=== PATIENT | male | born 1940 | race Caucasian/White ===

== ENCOUNTER 2017-09-23 09:53 | Observation (INO) | payer MEDICARE ==
[2017-09-23] MEDS ORDERED: Aspirin TAB* 325 MG PO ONE (10:29)
[2017-09-23] MEDS ORDERED: Nitroglycerin TAB 0.4 MG* 0.4 MG TAB SL ONE (10:40)
[2017-09-23 11:07] LABS: ABS Basophils 0 10^3/ul (0-0.2); ABS Eosinophils 0.1 10^3/ul (0-0.6); ABS Monocytes 0.6 10^3/ul (0-0.8); ABS Neutrophils 8.6 10^3/ul (1.5-7.7); ABS Nucleated RBC 0.01 10^3/ul; Eosinophil % 1.2 % (0-6); Hematocrit 48 % (42-52); Lymphocyte % 9.5 % (25-47); Mean Corpuscular HGB Conc 35 g/dl (31-36); Mean Corpuscular Hemoglobin 31 pg (27-31); Mean Corpuscular Volume 89 fL (80-94); Mean Platelet Volume 9 um3 (7.4-10.4); Nucleated Red Blood Cells % 0.1; Platelet Count 168 10^3/ul (150-450); Red Cell Distribution Width 14 % (10.5-15); White Blood Count 10.4 10^3/ul (3.5-10.8)
[2017-09-23 11:25] LABS: EGFR Non-African American 64.6 (>60)
--- NOTE | 2017-09-23 11:33 | RAD ---
INDICATION: Chest pain COMPARISON: Similar chest x-ray dated March 01, 2013 TECHNIQUE: Single AP portable view of the chest was obtained. FINDINGS: Image quality is compromised due to the relative inferiority of a portable chest x-ray. The heart and mediastinum exhibit normal size and contour. The lungs are grossly clear. There is no evidence of a large pleural effusion. Visualized bones are normal for the patient's age. IMPRESSION: No radiographic evidence for acute cardiopulmonary abnormality on this portable chest x-ray.
[2017-09-23] MEDS ORDERED: Iohexol 350* (CONTRAST) 500 ML MDV IV ONE (11:51)
--- NOTE | 2017-09-23 12:58 | RAD ---
STUDY: CT angiography of the chest, abdomen and pelvis. INDICATION: Chest pain radiating to the back. Relevant surgical history includes appendectomy for an ulcer" and lumbar surgery. COMPARISON: Similar examination dated January 20, 2013 TECHNIQUE: Multidetector CT angiography of the chest, abdomen and pelvis were obtained from the lung apices to the ischial tuberosities after the intravenous injection of 100 mL Omnipaque 350. Reformats were created in the coronal and sagittal planes. 3-D vascular imaging was created from the source images and reviewed as well. ANGIOGRAPHIC FINDINGS: The thoracic and abdominal aorta is normal in size and morphology. There is no evidence of pathologic aneurysmal dilatation or acute aortic dissection. There is mild scattered calcified atherosclerosis in the thoracic aorta becoming more confluent at the infrarenal abdominal aorta. The branch vessels of the arch of the aorta and abdominal aorta are adequately patent. There is eccentric noncalcified plaque along the medial margin of the left common iliac artery but adequate patency is maintained as far as the proximal femoral arteries. NON ANGIOGRAPHIC FINDINGS: Chest: The lungs are clear. There are no large pleural effusions. There is no mediastinal or hilar lymphadenopathy. The heart is grossly normal in appearance. Abdomen & Pelvis: Stable subcentimeter lesions with a fluid density are noted in the liver most consistent with benign cysts. Scattered calcifications are noted in the otherwise normal-appearing spleen. The pancreas and adrenal glands are grossly normal in appearance. At least one gallstone is incidentally noted. There are no definite inflammatory changes of the gallbladder within the limitations of a CT examination. The kidneys are normal in appearance without focal mass, calcification or signs of hydronephrosis. The renal cortices enhance promptly and symmetrically on arterial phase imaging. Surgical clips are noted along the junction of the stomach and duodenum and along the second portion of the duodenum. Evaluation of the gastrointestinal tract is limited without oral contrast. The small and large bowel are not distended. Consistent with the patient's surgical history, the appendix is not visualized. There is no gross retroperitoneal or mesenteric lymphadenopathy. Bilateral inguinal hernias are noted. The pelvic viscera is normal in appearance. Multilevel degenerative changes of the thoracic and lumbar spine includes loss of intervertebral disc height, anterior marginal osteophyte formation, multilevel vacuum disc phenomenon of the lumbar spine as well as mild endplate sclerosis at L5/S1.There are no sinister bone lesions. IMPRESSION: 1. No evidence of acute aortic dissection or pathologic aneurysmal dilatation. 2. Chronic, degenerative and postsurgical changes described in the body the report.
[2017-09-23] MEDS ORDERED: Ondansetron ODT TAB* 4 MG PO ONE (13:55)
[2017-09-23] MEDS ORDERED: Morphine INJ* 4 MG/ML 1 ML CARPUJECT IV ONE (13:55)
[2017-09-23] MEDS ORDERED: Ondansetron INJ* 2 MG/ML VIAL IV ONE (14:42)
[2017-09-23] MEDS ORDERED: Ondansetron INJ* 2 MG/ML VIAL ONE (14:42)
[2017-09-23] MEDS ORDERED: Lisinopril TAB* 5 MG PO ONE ×3 (15:25→21:13)
[2017-09-23] MEDS ORDERED: Omeprazole CAP* 20 MG PO ONE (15:26)
[2017-09-23] MEDS ORDERED: Al Hydrox/Mg Hydrox/Simet LIQ* 30 ML UDC PO ONE (15:27)
[2017-09-23] MEDS ORDERED: hydrALAZINE IV* 20 MG/ML VIAL IV SLOW PU PRN (19:19)
[2017-09-23] MEDS ORDERED: Sucralfate TAB* 1 GM PO ONE (19:52)
[2017-09-23] MEDS: HYDROcodone/ACETAMIN 5-325 MG* 1 TAB PO SCH (20:09)
[2017-09-23] MEDS ORDERED: Sucralfate TAB* 1 GM PO SCH (21:00)
[2017-09-23] MEDS ORDERED: amLODIPine TAB* 5 MG PO ONE ×2 (21:10→21:24)
--- NOTE | 2017-09-23 22:11 | HP ---
CC: Dr. Pacheco* [facility] MEDICINE HISTORY AND PHYSICAL: DATE OF ADMISSION: 09/23/17 PRIMARY CARE PHYSICIAN: Dr. Pacheco. ATTENDING PHYSICIAN: Dr. Floridalma Calle * (dictation provided by Rosalinda Hampton NP ). CHIEF COMPLAINT: Chest pain. HISTORY OF PRESENT ILLNESS: Mr. Hirsch is a 77-year-old male with a past medical history of hypertension, who presented to the hospital today with concern for chest pain. Mr. Hirsch states that he was in his normal state of health until last night about 9 p.m. At that time, he developed chest tightness across his epigastric region. He was quite uncomfortable through the night. He did take a couple of oxycodone, which is his routine at night. He could not sleep because it was aching in his low chest to epigastric area. In the morning, he got up about 5 a.m. and he took his normal home medications of multivitamin, aspirin, hydrochlorothiazide about 8 a.m. When his pain was still persistent, he ultimately decided to come to the emergency room for evaluation. In the emergency room, Mr. Hirsch had an EKG, which showed no evidence of ischemia. His troponin was 0.00 and a repeat troponin was drawn, which was also 0.00. PAST MEDICAL HISTORY: Hypertension. MEDICATIONS: 1. Hydrochlorothiazide 12.5 mg p.o. daily. 2. Hydrocodone with acetaminophen 5/325 one tab p.o. t.i.d. 3. Aspirin 81 mg p.o. daily. ALLERGIES: No known drug allergies. FAMILY HISTORY: The patient reports that his mom from cancer. His dad was a heavy smoker and drinker and related to heart attack at age 75. SOCIAL HISTORY: The patient quit smoking at age 41. Denies alcohol or drug use. He states that his , Caitlin will be the healthcare proxy. REVIEW OF SYSTEMS: A 14-point review of systems was completed with Mr. Hirsch, and all those not mentioned above were negative. PHYSICAL EXAMINATION GENERAL: Mr. Hirsch is lying in the bed with family at bedside. He is in no acute distress. VITAL SIGNS: Temperature 97.2, heart rate 61, respiratory rate 14, O2 saturation 96% on room air, and blood pressure 172/89. LUNGS: Clear to auscultation bilaterally with no accessory muscle use and good aeration. HEART: S1, S2. No murmurs, rub, or gallop and regular. ABDOMEN: Soft, nontender with bowel sounds positive x4. EXTREMITIES: No cyanosis or edema. NEURO: He is alert and he is oriented x3. He moves all his extremities equally. There is no facial asymmetry or focal weakness. Extraocular movements are intact. SKIN: Intact. DIAGNOSTIC STUDIES/LAB DATA: Sodium 137, potassium 4.0, chloride 102, serum bicarbonate 26, BUN 15, creatinine 1.11, glucose 121, lactic acid 1.8. WBC 10.4 , hemoglobin 17.9, hematocrit 48, platelet count 168. Again, troponin was 0.00 and 0.00. EKG shows a sinus rhythm with a heart rate of about 70 with no evidence of ischemia. Chest, abdomen, and pelvis shows no evidence of acute aortic dissection or pathological aneurysmal dilatation, chronic degenerative and post surgical changes described in the body of the report. Chest x-ray shows no acute process. ASSESSMENT AND PLAN: Mr. Hirsch is a 77-year-old male with past medical history of hypertension, who presents today to the hospital with concern for chest pain. Our plans are for observation in the hospital for the followin. Chest pain: The patient has risk factors of hypertension and high cholesterol. He states his cholesterol has been elevated outpatient, but has not started on medications. He does not have a family history of coronary artery disease. Thus far he has had 2 troponins, which were negative and an EKG , which showed no evidence of ischemia. He should be ruled out with a third troponin, which I am ordering now. I do not think he needs to stay inpatient in the hospital for observation to await a stress test and that he could go on for an outpatient stress testing, which has been ordered. I suspect that the patient perhaps has gastrointestinal pain. He has a history of an ulcer in the past. He do not take ibuprofen, but does take aspirin on a daily basis. Plan to offer omeprazole and a GI cocktail now in addition to the workup as prescribed here. 2. Hypertension. The patient's blood pressure is uncontrolled in the emergency department, running as high as 190s. Plan to add lisinopril 5 mg p.o. once now and additional agents as needed based on clinical course. 3. Hyperlipidemia. Plan to add on lipid profile and consider adding statin as needed. 4. Code status is full code. 5. DVT prophylaxis with early mobility. TIME SPENT: Approximately 60 minutes were spent on the admission of this patient, more than half of that time was spent with the patient at the bedside reviewing the events leading up to this hospitalization, performing the physical examination, and reviewing my plan of care. ROSALINDA HAMPTON NP [id number]/CPS #: [id number] LEO
[2017-09-23] MEDS: Morphine INJ* 4 MG/ML 1 ML CARPUJECT IV PRN (23:53)
[2017-09-24] MEDS: Morphine INJ* 4 MG/ML 1 ML CARPUJECT IV PRN (04:10)
[2017-09-24] MEDS ORDERED: Sucralfate TAB* 1 GM PO SCH (08:00)
[2017-09-24] MEDS: HYDROcodone/ACETAMIN 5-325 MG* 1 TAB PO SCH (08:24)
[2017-09-24 08:35] VITALS: BP 164/80
[2017-09-24] MEDS ORDERED: Lisinopril TAB* 10 MG PO SCH (09:00)
[2017-09-24] MEDS ORDERED: Hydrochlorothiazide TAB* 25 MG PO SCH ×2 (09:00)
[2017-09-24] MEDS ORDERED: Aspirin EC Low Dose* 81 MG TAB.EC PO SCH (09:00)
[2017-09-24] MEDS ORDERED: Lisinopril TAB* 5 MG PO SCH ×2 (09:00)
[2017-09-24] MEDS ORDERED: amLODIPine TAB* 5 MG PO SCH (09:00)
--- NOTE | 2017-09-24 14:11 | DS ---
DISCHARGE SUMMARY: DATE OF ADMISSION: 09/23/17 DATE OF DISCHARGE: 09/24/17 ADMITTING PROVIDER: Rosalinda Hampton NP. ATTENDING PHYSICIAN: Clifton Rabago MD. PRIMARY CARE PHYSICIAN: Federico Pacheco MD. CHIEF COMPLAINT: Chest and epigastric aching pain. PRINCIPAL DIAGNOSES: Acute coronary syndrome rule out. HISTORY OF PRESENT ILLNESS AND HOSPITAL COURSE: Mr. Hirsch is a 77-year- old male with PMH of hypertension, GI bleed in the setting of gastric ulcer in the setting of chronic ibuprofen use more than a decade ago, chronic pains, who presents with concern of chest pain that is described as an achiness and tightness in his lower midsternal chest and epigastric region that occurred at 9 p.m. the night prior to admission. He took some oxycodone which he usually does at night, but had poor sleep. He presented to [facility] the next morning. He had an EKG which showed no ST changes or evidence of ischemia. Troponins were trended x3, were negative at 0.00 with the last being 0.01. He was found to be hypertensive initially in the 190s, 195/130, and was admitted to observation status for ACS rule out. He was going to be discharged later the same day of presentation, but his blood pressures were still elevated in the 180s and lisinopril 20 mg was added to his already double dose of hydrochlorothiazide. He also had an additional dose of amlodipine 5 mg the day prior to discharge. Lipid panel which is significant for HDL of 46, LDL of 131. He is being discharged with a recommendation to follow up with Dr. Pacheco. Consider outpatient cardiac stress testing. He is being started on atorvastatin 20 mg daily, moderate intensity dose, given his hyperlipidemia, hypertension, advanced age, and elevated ASCVD 10-year risk assessment. He is also started on Carafate given his history of gastric ulcers, although this was in the setting of frequent ibuprofen for back pain. By the morning of discharge, the patient's epigastric pain had largely resolved. DISCHARGE MEDICATIONS: Include: 1. Atorvastatin 20 mg daily (new). 2. Hydrochlorothiazide 25 mg daily (doubled initial dose). 3. Lisinopril 20 mg daily (new). 4. Carafate 1 g p.o. t.i.d. (new). 5. Aspirin 81 mg daily. 6. Hydrocodone/acetaminophen 5/325 mg 1 tab p.o. t.i.d. (old). DISCHARGE DIET: Cardiac/heart-healthy. RESTRICTIONS: None. FOLLOWUP: Please follow up with Dr. Pacheco within 3 to 5 days of discharge for consideration of outpatient cardiac stress test and evaluation of the patient's blood pressure and tolerance of initiated statin medication. TIME SPENT: Time spent on discharge 30 minutes. [id number]/CPS #: [id number] LEO
== END 2017-09-24 10:54 | disposition home or self-care (01) ==
LOC: ED 09:53 → MEDTELE 13:34
PROVIDERS: ADMIT Hospitalist; ATTEND Internal Medicine
DX: R07.9 Chest pain, unspecified (principal); I10 Essential (primary) hypertension; E78.5 Hyperlipidemia, unspecified; Z86.79 Personal history of other diseases of the circulatory system; Z79.01 Long term (current) use of anticoagulants
CPT/HCPCS: 36415; 71010; 71275; 74174; 80053; 80061; 83605; 84484; 85025; 93005; 96374; 96375; 99283; A9270-GY; G0378; J0360; J2270; J2405; Q9967

== ENCOUNTER 2017-10-05 21:48 | Emergency (ER) | payer MEDICARE ==
[2017-10-06 01:07] VITALS: BP 152/84
--- NOTE | 2017-10-22 09:17 | ED ---
Nhi Austin Emily, scribed for Adiel Ghosh MD on 10/05/17 at 2342 . Hypertension - HPI Summary HPI Summary: This patient is a 77 year old M presenting to [facility] accompanied by family with a chief complaint of hypertension that began earlier today. Pt reports self- measured BP of 221/115. The patient rates the pain 0/10 in severity. Symptoms aggravated by nothing. Symptoms alleviated by nothing. Patient reports resolved rectal bleeding. Patient denies YOST and blurry vision. - History of Current Complaint Chief Complaint: EDHypertension Stated Complaint: HIGH BLOOD PRESSURE Hx Obtained From: Patient Onset/Duration: Started Hours Ago, Resolved Timing: Lasting Hours Aggravating Factor(s): Nothing Alleviating Factor(s): Nothing Associated Signs & Symptoms: Other: - Positive hematochezia. Negative YOST and blurry vision - Allergies/Home Medications Allergies/Adverse Reactions: Allergies Allergy/AdvReac Type Severity Reaction Status Date / Time No Known Allergies Allergy Verified 10/05/17 23:37 PMH/Surg Hx/FS Hx/Imm Hx Previously Healthy: No Endocrine/Hematology History: Reports: Hx Anticoagulant Therapy - asa Denies: Hx Diabetes, Hx Systemic Lupus Erythematosus, Hx Thyroid Disease Cardiovascular History: Reports: Hx Hypertension Denies: Hx Congestive Heart Failure, Hx Pacemaker/ICD Respiratory History: Denies: Hx Asthma, Hx Chronic Obstructive Pulmonary Disease (COPD) GI History: Reports: Hx Ulcer Comment Only: Other GI Disorders - gastric ulcer History: Denies: Hx Renal Disease Musculoskeletal History: Reports: Hx Back Problems Sensory History: Denies: Hx Contacts or Glasses, Hx Hearing Aid Opthamlomology History: Denies: Hx Contacts or Glasses Neurological History: Denies: Hx Dementia, Hx Seizures Psychiatric History: Denies: Hx Substance Abuse - Surgical History Surgery Procedure, Year, and Place: appendectomy. surgery for an ulcer. lumbar surgery - Immunization History Date of Influenza Vaccine: 05/2017 Infectious Disease History: No Infectious Disease History: Denies: Hx Hepatitis, Hx Human Immunodeficiency Virus (HIV), Traveled Outside the [place] in Last 30 Days - Family History Known Family History: Positive: None - Non contribuitory - Social History Occupation: Retired Lives: With Family Alcohol Use: None Substance Use Type: Reports: None Smoking Status (MU): Former Smoker Review of Systems Negative: Blurred Vision Positive: Other - Positive hypertension Positive: Other - Positive rectal bleeding Negative: Headache All Other Systems Reviewed And Are Negative: Yes Physical Exam - Summary Physical Exam Summary: Appearance: Well-appearing, Well-nourished Skin: Warm, Dry, No rash Eyes: Normal, PERRL, EOMI, sclera anicteric ENT: Normal Neck: Supple, nontender Respiratory: Clear to auscultation Cardiovascular: S1, S2, no murmur, no rub, no gallop Abdomen: Soft, nontender, no organomegaly Bowel sounds: Present Rectal Exam: Normal, no obvious hemorrhoid, no obvious masses, nml prostate Musculoskeletal: Normal, Strength/ROM Intact, no edema, pulses symmetrical Neurological: Normal, A&Ox3, cranial nerves II-XII WNL, follows commands, gait not tested, sensation intact to pin and light touch Psychiatric: affect normal, behavior appropriate, dressed appropriately, judgment intact Triage Information Reviewed: Yes Vital Signs On Initial Exam: Initial Vitals Temp Pulse Resp BP Pulse Ox 98.6 F 85 16 178/99 96 10/05/17 22:06 10/05/17 22:06 10/05/17 22:06 10/05/17 22:06 10/05/17 22:06 Vital Signs Reviewed: Yes Diagnostics - Vital Signs Vital Signs Temp Pulse Resp BP Pulse Ox 10/05/17 23:31 70 96 10/05/17 23:28 141/78 10/05/17 22:11 76 16 162/91 99 10/05/17 22:06 98.6 F 85 16 178/99 96 - Laboratory Lab Statement: Any lab studies that have been ordered have been reviewed, and results considered in the medical decision making process. Hypertension Course/Dx - Course Assessment/Plan: This patient is a 77 year old M presenting to [facility] accompanied by family with a chief complaint of hypertension that began earlier today. Pt reports self-measured BP of 221/115. Patient reports resolved rectal bleeding. Patient denies YOST and blurry vision. Physical Exam Findings. No obvious hemorrhoid, no obvious masses, nml prostate. Patient will be discharged with follow up from PCP. The patient is agreeable with this plan. - Diagnoses Provider Diagnoses: Labile hypertension, Rectal bleeding Discharge - Discharge Plan Condition: Good Disposition: HOME Discharge Disposition Comment: discharged to home Patient Education Materials: Rectal Bleeding (ED) Referrals: Federico Pacheco MD [Primary Care Provider] - The documentation as recorded by the scribNih dasilva Emily accurately reflects the service I personally performed and the decisions made by me, Adiel Ghosh MD.
== END 2017-10-05 23:50 | disposition home or self-care (01) ==
LOC: ED 21:48
DX: I10 Essential (primary) hypertension (principal); K62.5 Hemorrhage of anus and rectum; Z79.01 Long term (current) use of anticoagulants; Z86.79 Personal history of other diseases of the circulatory system
CPT/HCPCS: 99282

== ENCOUNTER 2018-06-27 06:34 | Inpatient (IN) | payer MEDICARE ==
[2018-06-27] MEDS ORDERED: Ondansetron INJ* 2 MG/ML VIAL IV ONE (06:55)
--- NOTE | 2018-06-27 07:16 | ED ---
Abdominal Pain/Male - HPI Summary HPI Summary: Patient presents with lower midsternal chest pain/epigastric pain and nausea with vomiting started a few hours after eating dinner last night. He reports he had spaghetti with butter and then was nothing by mouth after midnight as he was scheduled for a liver ultrasound today at 8:45 AM due to elevated LFTs discovered through his PCP's office. He was told he may have an autoimmune liver disorder and/or hepatitis. He and his partner reveal he has been started on a course of STEROIDS for this issue which he reports has not improved his symptoms. He also tried tums when his pain started this morning w/o relief. He' s been taking simethicone as needed as well on/off over the past year and doesn' t believe this is helping either. Feels a little bloated but nothing significant. Has had reduced appetite and weight loss - was 200's, now 180's. 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 He denies shortness of breath, jaw pain, arm numbness tingling weakness, back pain. Urination is same as usual re: frequency and lack of pain - admits his urine was dark the other day which lead him to his PCP's office. Was told he had elevated urobilirubin at PCP's office. Female cardiology manager reports vomiting started a day or 2 later. He admits he felt warm last night and has a fever here upon arrival. He denies history of risky sexual contact, heavy alcohol use, IV drug use, working with body fluids and doesn't travel. 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 Does not take acetaminophen. - History of Current Complaint Chief Complaint: EDChestPainROMI Stated Complaint: CHEST PAIN/VOMITTING Time Seen by Provider: 06/27/18 06:41 Hx Obtained From: Patient, Family/Proof Machine Operator - female cardiology manager Pain Intensity: 6 - Allergies/Home Medications Allergies/Adverse Reactions: Allergies Allergy/AdvReac Type Severity Reaction Status Date / Time No Known Allergies Allergy Verified 10/05/17 23:37 Home Medications: Home Medications Oxycodone HCl 1 tab PO Q6HR PRN 06/27/18 [History Confirmed 06/27/18] PMH/Surg Hx/FS Hx/Imm Hx Previously Healthy: No - liver issues past few months Endocrine/Hematology History: Reports: Hx Anticoagulant Therapy - takes daily 81mg asa Denies: Hx Blood Transfusions, Hx Diabetes, Hx Systemic Lupus Erythematosus, Hx Thyroid Disease, Hx Unexplained Bleeding Cardiovascular History: Reports: Hx Hypertension - lisinopril and HCTZ Denies: Hx Congestive Heart Failure, Hx Hypercholesterolemia, Hx Pacemaker/ ICD Respiratory History: Denies: Hx Asthma, Hx Chronic Obstructive Pulmonary Disease (COPD) GI History: Reports: Hx Ulcer Comment Only: Other GI Disorders - gastric ulcer; elevated LFT's History: Denies: Hx Renal Disease Musculoskeletal History: Reports: Hx Back Problems Sensory History: Denies: Hx Contacts or Glasses, Hx Hearing Aid Opthamlomology History: Denies: Hx Contacts or Glasses Neurological History: Denies: Hx Dementia, Hx Seizures Psychiatric History: Denies: Hx Substance Abuse - Surgical History Surgery Procedure, Year, and Place: appendectomy. surgery for an ulcer. 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 -41 y.o.) Review of Systems Positive: Fever, Chills, Fatigue Eyes: Negative - no jaundice Negative: Blurred Vision, Diplopia Positive: Chest Pain - lower sternum Respiratory: Negative Negative: Shortness Of Breath Positive: Abdominal Pain, Vomiting, Nausea. Negative: Diarrhea Positive: see HPI Musculoskeletal: Negative Skin: Negative - no jaundice Neurological: Negative - denies confusion, lethargy, slurred speech Negative: Headache Psychological: Normal All Other Systems Reviewed And Are Negative: Yes Physical Exam Triage Information Reviewed: Yes Vital Signs On Initial Exam: Initial Vitals Temp Pulse Resp BP Pulse Ox 101.7 F 116 20 133/74 94 06/27/18 06:35 06/27/18 06:35 06/27/18 06:35 06/27/18 06:35 06/27/18 06:35 Vital Signs Reviewed: Yes Appearance: Positive: Pain Distress, Thin Skin: Positive: Warm, Skin Color Reflects Adequate Perfusion, Dry - no jaundice of skin Head/Face: Positive: Normal Head/Face Inspection Eyes: Positive: EOMI, Conjunctiva Clear - possibly mild jaundice of sclera ENT: Positive: Hearing grossly normal, Pharynx normal - mucosa somewhat dry Neck: Positive: Supple, Nontender Respiratory/Lung Sounds: Positive: Clear to Auscultation, Breath Sounds Present. Negative: Rales, Rhonchi, Wheezes Cardiovascular: Positive: Normal, RRR, S1, S2. Negative: Murmur, Rub, Leg Edema Left, Leg Edema Right Abdomen Description: Positive: Distended - mild -no ascites or ecchymosis about the ab/flanks, Guarding, Other: - mild epigatsric TTP. Negative: CVA Tenderness (R), CVA Tenderness (L) Bowel Sounds: Positive: Present Male Genital Exam: Positive: Other - deferred Musculoskeletal: Positive: Normal, Strength/ROM Intact Neurological: Positive: Normal, Sensory/Motor Intact, Alert, Oriented to Person Place, Time, CN Intact II-III Psychiatric: Positive: Normal Diagnostics - Vital Signs Vital Signs Temp Pulse Resp BP Pulse Ox 06/27/18 06:46 100 18 129/83 93 06/27/18 06:35 101.7 F 116 20 133/74 94 - Laboratory Result Diagrams: 06/27/18 07:08 06/27/18 07:08 Lab Statement: Any lab studies that have been ordered have been reviewed, and results considered in the medical decision making process. Re-Evaluation - Re-Evaluation First Eval Change: Improved - nausea resolved and pain improved s/p meds Abdominal Pain Fem Course/Dx - Course Course Of Treatment: Patient presents to ED with acute lower sternal and epigastric pain in the middle the night leading to nausea with vomiting. He also has a fever upon arrival. He reports a history over the past few months of elevated liver enzymes evaluated through his primary care office - he is sometimes symptomatic with GI nausea, reduced appetite, bloating. He's being evaluated for autoimmune hepatitis and was started on prednisone at the end of last week. He's had about 3 or 4 doses of 40 mg daily. Spoke with his PCP Dr. Gatica who initiated this therapy as patient had an elevated SID. He reports neg hepatitis panel. He had ordered an ultrasound outpt for later this week however patient came today with acute symptoms. Today, his liver enzymes are quite elevated across the board and his ultrasound reveals dilatation of the common duct up to 1.2 cm. Has a "probable gallstone" as reported by the radiologist however venice cholecystitis is not reported. He additionally has findings of fatty infiltration of the liver. His pancreas is unremarkable however parts of it are "not well visualized due to overlying bowel gas". His lipase is low. He denies history of heavy alcohol use, Tylenol use, IV drug use , risky sexual behavior, travel. He admits to weight loss of about 20lbs over the past couple of months. Discussed case with Dr. Rowland at 7:58am who initially requested consult be deferred to Dr. Deleon in the event pt needs ERCP. Called Dr. Deleon at 8:00am and after delay of response called Dr. Rowland again at 9am who was able to reach Dr. Deleon. Dr. Deleon return the call shortly after and is requesting CT along with admission by the hospitalist. He offers no change in current therapy and reports he can perform ERCP today as needed. Spoke with Dr. Kingsley at 9:30am who agrees to admit. Patient is in improved condition at time of transition of care. - Diagnoses Provider Diagnoses: Cholangitis Discharge - Sign-Out/Discharge Documenting (check all that apply): Patient Departure - Discharge Plan Condition: Stable Disposition: ADMITTED TO [facility] - Billing Disposition and Condition Condition: STABLE Disposition: Admitted to [facility]
[2018-06-27] MEDS ORDERED: Morphine INJ* 4 MG/ML 1 ML SYRINGE (NEW SYRINGE VERSION) IV ONE (07:18)
[2018-06-27 07:24] LABS: Hematocrit 47 % (42-52); Hemoglobin 16.3 g/dl (14.0-18.0); Mean Corpuscular HGB Conc 35 g/dl (31-36); Mean Corpuscular Hemoglobin 31 pg (27-31); Mean Corpuscular Volume 89 fL (80-94); Mean Platelet Volume 7.9 um3 (7.4-10.4); Platelet Count 231 10^3/ul (150-450); Red Blood Count 5.27 10^6/ul (4.00-5.40); Red Cell Distribution Width 14 % (10.5-15); White Blood Count 15.5 10^3/ul (3.5-10.8)
[2018-06-27 07:26] LABS: ABS Basophils 0 10^3/ul (0-0.2); ABS Eosinophils 0 10^3/ul (0-0.6); ABS Lymphocytes 0.3 10^3/ul (1.0-4.8); ABS Monocytes 0.9 10^3/ul (0-0.8); ABS Neutrophils 14.3 10^3/ul (1.5-7.7); ABS Nucleated RBC 0 10^3/ul; Eosinophil % 0 % (0-6); Lymphocyte % 1.9 % (25-47); Nucleated Red Blood Cells % 0.1
[2018-06-27 07:39] LABS: EGFR Non-African American 57.2 (>60)
[2018-06-27] MEDS ORDERED: NS 0.9% 1000 ML* 3,000 ML IV ONE (07:41)
[2018-06-27] MEDS ORDERED: Piperacillin/Tazobac ADVAN(*) 3.375 GM in NS 0.9% 100 ML* 100 ML IVPB ONE (07:42)
[2018-06-27] MEDS ORDERED: Vancomycin(*) 1,250 MG in NS 0.9% 250 ML* 250 ML IVPB ONE (07:42)
--- NOTE | 2018-06-27 07:54 | RAD ---
INDICATION: Chest pain COMPARISON: Chest x-ray most recently dated September 23, 2017 TECHNIQUE: Single AP portable view of the chest was obtained. FINDINGS: Image quality is compromised due to the relative inferiority of a portable chest x-ray. The heart and mediastinum exhibit normal size and contour. The lungs are grossly clear. There is no evidence of a large pleural effusion. Visualized bones are normal for the patient's age. IMPRESSION: No radiographic evidence for acute cardiopulmonary abnormality on this portable chest x-ray. R1
[2018-06-27 08:02] LABS: INR 0.97 (0.77-1.02)
--- NOTE | 2018-06-27 08:39 | RAD ---
HISTORY: Epigastric, RUQ pain COMPARISONS: CT dated September 23, 2017 TECHNIQUE: Multiple transverse and longitudinal ultrasound images were obtained of the right upper quadrant of the abdomen using grayscale and color Doppler imaging. FINDINGS: Evaluation is limited secondary to bowel gas. LIVER: The liver is diffusely echogenic and coarse in echotexture, with decreased acoustic transmission. The liver is otherwise normal in shape, size, and contour. There is normal hepatopedal flow of the portal vein on Doppler imaging. BILIARY TREE: There is ectasia of the common duct. The common duct measures 1.2 cm. GALLBLADDER: The gallbladder is not well visualized on the current examination, which may be due to incomplete distention and overlying bowel gas there is a probable gallstone which appears to correspond to the finding noted on the previous CT examination. There is no sonographic Martinez's sign, or pericholecystic fluid. PANCREAS: The head of the pancreas is unremarkable. The tail of the pancreas is not well visualized secondary to overlying bowel gas. RIGHT KIDNEY: The right kidney is normal in shape, size, contour, and echogenicity. There is no hydronephrosis or nephrolithiasis. The right kidney measures 12 x 5 x 6.8 cm. AORTA AND IVC: There is limited evaluation of the aorta secondary to bowel gas. The IVC is grossly normal. FLUID: There are no pleural effusions. There is no free fluid within the hepatorenal recess. OTHER FINDINGS: None. IMPRESSION: 1. LIMITED STUDY. THE GALLBLADDER IS NOT WELL EVALUATED WHICH MAY BE DUE TO INCOMPLETE EXTENSION AND OVERLYING BOWEL GAS. 2. THERE IS PROBABLE CHOLELITHIASIS. 3. DILATATION OF THE COMMON DUCT UP TO 1.2 CM. 4. FATTY INFILTRATION OF THE LIVER.
[2018-06-27] MEDS ORDERED: Iodixanol* (CONTRAST) 320 MG/ML 100 ML SDV IV ONE (09:25)
--- NOTE | 2018-06-27 10:42 | RAD ---
CLINICAL HISTORY: Elevated LFTs. Relevant surgical history includes appendectomy, "surgery for an ulcer" and lumbar surgery COMPARISON: Same day gallbladder ultrasound demonstrating cholelithiasis and a dilated common bile duct and a CT of the chest, abdomen and pelvis dated September 23, 2017 TECHNIQUE: Contrast enhanced CT examination of the abdomen and pelvis from the lung bases through the initial tuberosities. The patient received 100 mL of Visipaque 320 intravenously prior to imaging.The patient received oral contrast as well prior to imaging. FINDINGS: Unless otherwise specified comparisons below reference the September 23, 2017 CT examination. VISUALIZED LUNG BASES: The visualized lung bases are grossly clear. There is no pleural effusion. ABDOMEN AND PELVIS: Again seen in the left lobe of the liver is a hypoattenuating focus in the Hounsfield unit nearly consistent with a simple cyst (image 24) that is unchanged from the previous CT examination. The spleen, pancreas and adrenal glands are grossly normal in appearance. The common bile duct is dilated up to at least 1.2 cm (axial image 27). More distal from this obstruction is a 6 mm stone in the gallbladder lumen. The gallbladder is mostly contracted which further limits evaluation with CT exam. The kidneys are normal in appearance without focal mass, calcification or signs of hydronephrosis. There are surgical clips adjacent to the second portion of the duodenum and overlying the base of the cecum the correlate to the patient's reported surgical history. Evaluation of the gastrointestinal tract is limited in the absence of oral contrast. The small and large bowel are not distended. Consistent with the patient's surgical history the appendix is not visualized. There is no gross retroperitoneal or mesenteric lymphadenopathy. The pelvic viscera is normal in appearance. The mildly calcified abdominal aorta and iliac arteries are normal in course and diameter. Degenerative changes include multilevel loss of intervertebral disc height involving the lower thoracic and lumbar spine.There are no sinister bone lesions. IMPRESSION: 1. CT findings are consistent with choledocholithiasis. 2. Despite the appearance of a dilated common bile duct and stones in the common bile duct lumen, the gallbladder appears mostly contracted. 3. There are additional chronic, degenerative and postsurgical changes described in the body the report unlikely to be directly related to the patient's current clinical presentation. Findings were discussed over the telephone with Kylie BETANCUR at 1015 hours on June 27, 2018.
[2018-06-27] MEDS ORDERED: Buffered Lidocaine 0.9% SYRIN* 5 ML/SYR SYRINGE INTRADERM ONE (12:28)
[2018-06-27 12:45] LABS: Urine Appearance Clear; Urine Blood Negative (Negative); Urine Color Amber; Urine Ketones Negative (Negative); Urine Protein Negative (Negative); Urine Specific Gravity 1.029 (1.010-1.030); Urine Urobilinogen Positive (Negative)
[2018-06-27] MEDS ORDERED: Morphine VIAL* 4 MG/ML VIAL (1 ml vial) IV PRN (12:56)
[2018-06-27] MEDS ORDERED: Ondansetron INJ* 2 MG/ML VIAL IV PRN ×2 (12:56→16:02)
[2018-06-27] MEDS ORDERED: NS 0.9% 1000 ML* 1,000 ML IV SCH ×2 (13:00→20:06)
--- NOTE | 2018-06-27 13:35 | PN ---
Progress Note - Progress Note Date of Service: 06/27/18 Note: Pt was seen and examined. Please see dictated H&P for details. Pt has no h/o CAD , no h/o SOB or CP. 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 He is an appropriate candidate for the anticipated ERCP procedure.
[2018-06-27] MEDS ORDERED: fentaNYL* 50 MCG/ML 2 ML VIAL (100 MCG VIAL) ONE (14:46)
[2018-06-27] MEDS ORDERED: Midazolam* 1 MG/ML 2 ML VIAL (2 MG) ONE (14:46)
[2018-06-27] MEDS ORDERED: Zosyn per Pharmacy* NOTE FOLLOW UP SCH (15:00)
[2018-06-27] MEDS ORDERED: Famotidine IV* 10 MG/ML 2 ML (20 mg) ONE (15:21)
[2018-06-27] MEDS ORDERED: Propofol* 10 MG/ML 20 ML BTL IV PUSH ONE (15:21)
[2018-06-27] MEDS ORDERED: Mivacurium Chloride* 20 MG/10 ML VIAL IV ONE (15:21)
[2018-06-27] MEDS ORDERED: Dexamethasone IV* 4 MG/ML 1 ML (4 MG) ONE (15:21)
[2018-06-27] MEDS ORDERED: Lidocaine 2% PF * 5 ML VIAL ONE (15:22)
[2018-06-27] MEDS ORDERED: Labetalol IV* 5 MG/ML 20 ML VIAL ONE (15:52)
[2018-06-27] MEDS ORDERED: Naloxone* 0.4 MG/ML 1 ML VIAL IV PRN (16:02)
[2018-06-27] MEDS ORDERED: fentaNYL* 50 MCG/ML 2 ML VIAL (100 MCG VIAL) IV PRN (16:02)
[2018-06-27] MEDS ORDERED: DiMENhydriNATE IV* 50 MG/ML VIAL IV PUSH PRN (16:02)
[2018-06-27] MEDS ORDERED: diPHENhydraMINE IV* 50 MG/ML 1 ml VIAL (BENADRYL) IV PRN (16:02)
[2018-06-27] MEDS: Piperacillin/Tazobac ADVAN(*) 3.375 GM in NS 0.9% 100 ML* 100 ML IVPB SCH ×2 (17:53→23:58)
--- NOTE | 2018-06-27 18:00 | RAD ---
INDICATION: Common bile duct stones. COMPARISON: Correlation is made with a prior CT of the abdomen and pelvis from June 27, 2018. TECHNIQUE: An ERCP exam was performed by Dr. Deleon Multiple spot films of the right upper quadrant were obtained. Approximately 222.4 seconds of intermittent fluoroscopic guidance was provided during the exam. FINDINGS: The films demonstrate opacification of the common hepatic and common bile ducts and a several intrahepatic ducts. The extrahepatic ducts appear distended. There is an intraluminal filling defect in the midportion of the common bile duct suspicious for a calculus. Subsequently there is passage of a balloon catheter over a guidewire. IMPRESSION: ERCP CONTROL FILMS. CPT II Codes: G9500
--- NOTE | 2018-06-27 21:23 | HP ---
ADDENDUM NOW INCLUDED ON THIS REPORT HISTORY AND PHYSICAL: DATE OF ADMISSION: 06/27/18 PRIMARY CARE PROVIDER: Dr. Pacheco. ATTENDING PHYSICIAN WHILE IN THE HOSPITAL: Dr. Mraie * (recording the dictation is Surinder Alatorre NP). CHIEF COMPLAINT: Abdominal pain, nausea and vomiting. HISTORY OF PRESENT ILLNESS: Mr. Hirsch is a 78-year-old male who presented to the ER this morning with epigastric pain. Symptoms started about 3 or 4 days ago, at which time the patient did see his primary care physician who ordered labs and noted that his liver functions and SID were elevated. PCP placed patient on Prednisone 40 mg daily which he has been taking for the last 3 to 4 days. In addition PCP ordered an ultrasound which was scheduled for this morning. The patient reports over the past couple of days the pain has increased. Last evening the pain was severe and he was unable to sleep therefore presented to the ED this morning prior to scheduled ultrasound. During ED visit, a CT was obtained and revealed choledocholithiasis. Labs revealed elevated WBC and liver function. Due to elevated WBC and temp documented during triage, patient was martin cultured, IV antibiotic administered, and IV fluids given. The patient does not identify any aggravating or alleviating factors. He reports the pain pain is intermittent. Describes pain as sharp and in the epigastric region. Pain does not radiate. The patient reports that he has not had any recorded fevers, but did feel "chilled" last night. Associated symptoms include nausea and vomiting. Reports he vomited x1 last evening. 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 No diarrhea, no blood in the stool. PAST MEDICAL HISTORY: 1. Hypertension 2. Arthritis 3. Kidney stones. PAST SURGICAL HISTORY: 1. Abdominal surgery after a perforated gastric ulcer 2. Noninvasive spinal surgery (pt unsure of name of procedure) 3. Appendectomy MEDICATIONS: 1. Lisinopril 20 mg daily. 2. HCTZ 25 mg daily. 3. ASA 81 mg daily. 4. Oxycodone prn pain. ALLERGIES: The patient has no known drug allergies. FAMILY HISTORY: The patient states that mom of cancer and dad of a heart attack. Dad had hx of smoking and drinking. SOCIAL HISTORY: The patient quit smoking at age 41. Denies alcohol use. Reports is his surrogate. REVIEW OF SYSTEMS: Currently afebrile. Elevated temp on triage to ED as mentioned above. He denies any chest pain, shortness of breath, cough. Reports abdominal/epigastric pain and nausea as mentioned above. Denies constipation and diarrhea. Denies urinary symptoms. Review of 12 systems were completed and all others were negative. PHYSICAL EXAMINATION GENERAL: Mr. Hirsch is a 78-year-old male. He is lying on the hospital bed on the 4th floor. He is well nourished and well developed. VITAL SIGNS: Blood pressure 117/65, O2 96% on RA, RR 16, HR 70, Temp of 97.4. HEENT: Head: Atraumatic. Eyes: Sclerae slightly yellow. Oral mucosa appears normal. NECK: Supple. LUNGS: Clear to auscultation bilaterally. No wheezes, rales, or rhonchi. HEART: Sounds S1 and S2 present. Rate and rhythm are normal. No murmurs, rubs , or gallops. ABDOMEN: Soft, flat, and nontender to palpation. Bowel sounds are present in all 4 quadrants. EXTREMITIES: Pulses are positive in all extremities. He is moving all of his extremities well. No edema noted. NEUROLOGICAL: He is awake, alert, oriented x3. Speech is clear. Tongue is midline. No gross obvious focal deficits. SKIN: Intact. Mildly jaundiced. DIAGNOSTIC STUDIES/LAB DATA: Labs drawn at 0700 this morning. WBC 15.5, RBCs 5.27, hemoglobin 16.3, hematocrit is 47, platelet count is 231,000. PTT 23.2. Sodium is 137, potassium 3.6, chloride 98, BUN 22, creatinine 1.23, glucose 180 , lactate 0.7, Total bilirubin 7.50, direct bilirubin 5.10, indirect bilirubin 2.4, AST 324, ALT 828, alk phos 443. Trop 0.02. C-reactive protein 73.26. Lipase is less than 10. As previously mentioned, he had a CT obtained today, which revealed: 1. Choledocholithiasis, also reports slight appearance of dilated common bile duct. The stone is in the common bile duct lumen. The gallbladder appears mostly contracted. 2. There are additional chronic degenerative postsurgical changes described in the body of the report, unlikely to be directly related to this patient's current clinical presentation. The patient also had an EKG in the emergency room, which showed sinus tachycardia at a rate of 99. No other concerning findings. Dr. Marie reviewed this EKG also. ASSESSMENT AND PLAN: Mr. Hirsch is a 78-year-old male. He will be admitted under full admission status for: 1. Choledocholithiasis: GI consulted and ERCP ordered. Asmentioned above, patient had elevated temp and WBC in ED for which he received 3 L NS, Vanco, and Zosyn. Cultures were also obtained and we are waiting results. 2. HTN: Hold Lisinopril and HCTZ. We will watch him closely and if needed, we will order IV medication. 3. DVT prophylaxis: High risk. Subq Heparin order and will start tomorrow morning after he has undergone the ERCP. 4. Code status is full. 5. Fluids, electrolytes, and nutrition: We will be giving him fluids. He has received 3000 mL in the ED and we will continue with 75 mL of normal saline per hour. TIME SPENT: Time spent on the admission was 60 minutes, greater than half was spent [id number] with the patient obtaining my history and physical, the other half of the time was spent going over the plan of care with the patient and implementing the plan of care. I discussed my plan with my attending, Dr. Marie, and she is in agreement. SURINDER ALATORRE NP ADDENDUM: It was noticed that upon arrival to the ER at 06:35, the patient had a temp of 101.7. Vanco and Zosyn were given in the ER as previously mentioned. We will continue Zosyn 3.375 g q.8 hours. SURINDER ALATORRE NP [id number]/CPS #: [id number]/CPS #: [id number] LEO
--- NOTE | 2018-06-27 22:20 | CONS ---
GASTROENTEROLOGY CONSULT: DATE: 06/27/18 CONSULTING PHYSICIANS: Krystle Pierson. REASON FOR CONSULT: Upper abdominal pain, fever, and elevated liver function tests with bilirubin 7. HISTORY OF PRESENT ILLNESS: This 78-year-old man noticed dark urine on . At that time, he was not having any pain. He began having pain on or 06/22/18 or 06/23/18. It was epigastric and severe. He was seen by his primary physician, who prescribed prednisone. Autoimmune hepatitis is mentioned. His LFTs were grossly elevated. His urine remained dark. He developed more severe pain and came to the emergency room this morning. His temp was 101.7 at 6:30 a.m. and bilirubin 7.5, ALT 828, alkaline phosphatase 443. His albumin was 4.0. His white count was 15. Acute hepatitis panel was negative. His supplemented the history that he had been having quite a bit of pain over the last 2 to 3 days. In August 2017, he was admitted for lower substernal chest pain which in a way he thinks was qualitatively similar to this. His cardiac evaluation was benign and the pain passed. He had a chest, abdominal and pelvis CTA at that time, but no ultrasound. PAST MEDICAL HISTORY: 1. Hypercholesterolemia. 2. Hypertension. 3. Status post peptic ulcer surgery - Dr Walton "cutting nerves" about 30 years ago. 4. Appendectomy - age 22. MEDICATIONS: At home: Atorvastatin 20 Hydrochlorothiazide 25. Lisinopril 20 Aspirin 81. Hydrocodone p.r.n. ALLERGIES: None known to drugs. Family history - father of AR (at age 75 heavy smoker) and mother of unspecified cancer. 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 REVIEW OF SYSTEMS: No history of CVA, TIA, seizures, syncope, AR, valvular disease, acute hepatitis, renal stones, gross hematuria, or recent fall or fracture. Besides today, his most recent ER visit was 10/05/17 for accelerated hypertension. PHYSICAL EXAM: He is an icteric, older man, in no acute distress at this time. He says his abdomen is now fine. HEENT exam is otherwise unremarkable. He has no adenopathy. His lungs are clear and heart sounds are regular. The abdomen is symmetric. There is an epigastric scan midline without any hernia. There is right lower quadrant appendectomy scar. He is nontender at this time. Rectal: Deferred. Extremities show no edema. Neurologic is normal with normal mentation, symmetric cranial nerves, movement of all 4 extremities and gait. DIAGNOSTIC STUDIES/LAB DATA: INR is 0.97. Radiology review - CT scan today shows a fairly small contracted gallbladder containing a stone and then stones in the common duct. The liver itself is without focal abnormality. IMPRESSION: A man with pain and now fever and leukocytosis consistent with moving gallstones and the common duct is involved and he clearly would benefit from an ERCP clearing the duct. Informed consent was obtained. The patient and his together assisted by diagrams. All questions were answered and side effects reviewed with an opportunity for questions. [id number]/CPS #: [id number] MTDD
--- NOTE | 2018-06-27 22:37 | HP ---
HISTORY AND PHYSICAL: ADDENDUM: It was noticed that upon arrival to the ER at 06:35, the patient had a temp of 101.7. Vanco and Zosyn were given in the ER as previously mentioned. We will continue Zosyn 3.375 g q.8 hours. SURINDER ALATORRE, SPA RECEPTIONIST [id number]/[facility] #: [id number] LEO
[2018-06-28] MEDS: Heparin VIAL(*) 5000 UNITS/ML VIAL (FIVE THOUSAND) SUBCUT SCH ×3 (06:14→22:17)
[2018-06-28 06:53] LABS: ABS Basophils 0 10^3/ul (0-0.2); ABS Eosinophils 0 10^3/ul (0-0.6); ABS Lymphocytes 0.9 10^3/ul (1.0-4.8); ABS Monocytes 0.5 10^3/ul (0-0.8); ABS Neutrophils 7.5 10^3/ul (1.5-7.7); ABS Nucleated RBC 0 10^3/ul; Eosinophil % 0.5 % (0-6); Hematocrit 37 % (42-52); Hemoglobin 12.9 g/dl (14.0-18.0); Lymphocyte % 10.2 % (25-47); Mean Corpuscular HGB Conc 35 g/dl (31-36); Mean Corpuscular Hemoglobin 32 pg (27-31); Mean Corpuscular Volume 90 fL (80-94); Nucleated Red Blood Cells % 0; Platelet Count 176 10^3/ul (150-450); Red Cell Distribution Width 14 % (10.5-15)
[2018-06-28 07:29] LABS: EGFR Non-African American 64.4 (>60)
[2018-06-28] MEDS: Piperacillin/Tazobac ADVAN(*) 3.375 GM in NS 0.9% 100 ML* 100 ML IVPB SCH ×2 (08:27→16:15)
--- NOTE | 2018-06-28 09:47 | PN ---
Subjective Date of Service: 06/28/18 Interval History: Pt's abd pain resolved after ERCP. Feels hungry Objective Active Medications: Heparin Sodium (Porcine) (Heparin Vial(*)) 5,000 units SUBCUT Q8HR [facility] Last Admin: 06/28/18 06:14 Dose: 5,000 units Piperacillin Sod/Tazobactam (Sod 3.375 gm/ Sodium Chloride) 100 mls @ 25 mls/ hr IVPB Q8H [facility] Last Admin: 06/28/18 08:27 Dose: 25 mls/hr Morphine Sulfate (Morphine Vial*) 1 mg IV Q4H PRN PRN Reason: PAIN - MILD Last Admin: 06/27/18 18:08 Dose: 1 mg Ondansetron HCl (Zofran Inj*) 4 mg IV Q4H PRN PRN Reason: NAUSEA/VOMITING Pharmacy Consult (Zosyn Per Pharmacy*) 1 note FOLLOW UP .ZOSYN PER PHARMACY [facility] Vital Signs - 8 hr 06/28/18 06/28/18 06/28/18 03:59 04:05 07:21 Temperature 97.5 F 97.5 F Pulse Rate 48 51 56 Respiratory 18 16 Rate Blood Pressure 107/41 116/46 (mmHg) O2 Sat by Pulse 97 98 Oximetry Oxygen Devices in Use Now: None Appearance: 78 yo M in nAD, aAOx3 Eyes: No Scleral Icterus, PERRLA Ears/Nose/Mouth/Throat: NL Teeth, Lips, Gums, Mucous Membranes Moist Neck: NL Appearance and Movements; NL JVP, Trachea Midline Respiratory: Symmetrical Chest Expansion and Respiratory Effort, Clear to Auscultation Cardiovascular: NL Sounds; No Murmurs; No JVD, RRR Abdominal: NL Sounds; No Tenderness; No Distention Lymphatic: No Cervical Adenopathy Extremities: No Edema, No Clubbing, Cyanosis Skin: No Rash or Ulcers, No Nodules or Sclerosis Neurological: Alert and Oriented x 3, NL Muscle Strength and Tone Result Diagrams: 06/28/18 06:26 06/28/18 06:26 Microbiology and Other Data: Microbiology 06/27/18 07:28 Aerobic Blood Culture - Preliminary Blood Venous Escherichia Coli Anaerobic Blood Culture - Preliminary Escherichia Coli 06/27/18 07:08 Aerobic Blood Culture - Preliminary Blood Venous Escherichia Coli Anaerobic Blood Culture - Preliminary Escherichia Coli Assess/Plan/Problems-Billing Assessment: 78 yo M with h/o HTN presents with fever, jaundice and RUQ abd pain , had CBD stone, ERCP on 06/27/18 - Patient Problems (1) Common bile duct (CBD) obstruction Comment: s/p ERCP by Dr. Deleon on 06/27/18 Pain resolved, LFT's improving Pt was septic at admission with gram neg bacteremia. will cont Zosyn till sensitivites come back. Dr. Krishnan to see for surgical consult today (2) HTN (hypertension) Comment: normotensive meds on hold (3) DVT prophylaxis Comment: HSQ Status and Disposition: inpatient
--- NOTE | 2018-06-28 11:57 | PRO ---
DATE: 06/27/18 - ROOM #412 REFERRING PHYSICIAN: Dr. Federico Pacheco.* PROCEDURE: ERCP and sphincterotomy with basket crushing of common duct stones and balloon extraction of common duct stones in fragments. INDICATION: This 78-year-old man came to the emergency room with 3 days of abdominal pain and dark urine. The dark urine actually preceded the abdominal pain. He is febrile at 101.7 and white count was 15,000. Bilirubin was 7.5. He was given Zosyn and vancomycin. CT scan showed common duct stones. Conversation was held with the patient and his , and informed consent obtained. All questions were answered. ENDOSCOPIST: Dr. Deleon. ANESTHESIA: Dr. Obrien. FINDINGS: He is a healthy-appearing older man, mildly jaundiced, in no distress at this time. Bowel sounds are positive. The abdomen is soft with epigastric tenderness. He was positioned in a semi-prone position. Anesthesia has been induced by Dr. Obrien. ERCP: Esophagus - 20% views were normal. Stomach - appeared somewhat deformed or there was a hiatal hernia. A standard diagnostic scope was not used. The scope, however, did enter the antrum and could be passed through the pylorus, which appeared to be dysfunctional ( history of probable pyloroplasty). The scope passed to the third portion of duodenum. Duodenum - appeared normal. Papilla - generous in size and symmetric. There were small periampullary diverticula, couple of cm proximal to the face of the papilla. Initial passage of a guidewire coiled and seemed most likely to have gone into the pancreatic duct. Repositioning was done and a plane was obtained at about 11 o'clock orientation to surge the way up the surface of the papilla that threaded up into the common duct. The wire was seated high in the liver and a short axis position was taken with a sphincterotome. Ejection showed a large stone in the upper duct. Sphincterotomy was done at 12 o'clock orientation, generous at the mucosal level, possibly 14 mm. An exchange was made for balloon and this was brought up and inflated in the common hepatic duct area and brought down. It was a large approximately 2 cm stone, brought down. There was a little bit of gravel that came through, the stone would not. Crushing basket 2.5 cm was then deployed and readily captured the stone, crushed it down, fairly low in the common duct. Two additional passes with the basket brought through some fragments. A balloon brought through more fragments, but there appeared to be still something stuck in the distal duct. The basket was then reinserted and this brought through a very large definitive fragment that was yellow and lobulated. More gravel came through, most of it yellow, some brown to almost black. Dye was draining readily. Drainage appeared to establish and the procedure was terminated. IMPRESSION: 1. Pyloroduodenal deformity consistent with prior peptic ulcer disease and surgery. 2. Suspected hiatal hernia. 3. Status post endoscopic sphincterotomy with small duodenal diverticula. 4. Common bile duct stones, crushed and now extracted. The patient can have definitive cholecystectomy. [id number]/[facility] #: [id number] [facility]
--- NOTE | 2018-06-28 18:10 | PN ---
Progress Note - Progress Note Date of Service: 06/28/18 Note: Brief Surgery Note: (full consult dictated) S: 78 yo w/ cholelithiasis and choledocholithiasis, now day 1 s/p ERCP w/ sphincterotomy and extraction of mult stones and fragments. Today feeling fine; no pain. No N/V. Joel diet. On Zosyn. O: No fever in past 24 hr. Vital Signs - 8 hr 06/28/18 06/28/18 16:00 16:34 Temperature 98.0 F Pulse Rate 54 Respiratory 18 Rate Blood Pressure 117/44 (mmHg) O2 Sat by Pulse 99 99 Oximetry Gen: WN, WD in NAD; appears comfortable. HEENT: mild scleral icterus Heart: reg Lungs: clear Abd: midline incision from prior gastric surgery; nondistended; soft; nontender to palp; neg Martinez's sign Labs: Laboratory Tests 06/27/18 06/27/18 06/28/18 07:08 07:08 06:26 WBC 15.5 H 9.0 Neut % (Auto) 83.7 H Lymph % (Auto) 10.2 L Total Bilirubin 7.50 H Direct Bilirubin 5.10 H Indirect Bilirubin 2.4 H AST 324 H ALT 828 H Alkaline Phosphatase 443 H Troponin I 0.02 Lipase < 10 L 06/28/18 06:26 WBC Neut % (Auto) Lymph % (Auto) Total Bilirubin 4.40 H D Direct Bilirubin Indirect Bilirubin AST 82 H ALT 388 H Alkaline Phosphatase 277 H Troponin I Lipase Blood cx's: RUN DATE: 06/28/18 [facility] LAB LIVE PAGE 1 ORDERED: Blood Cult COMMENTS: Verbal to [id number] by [id number] at 1945 on 06/27/18. Results read back accurately. Procedure Result Reported Site Aerobic Culture Bottle Preliminary 06/28/18- 824 ML Aerobic Bottle Gram Stain Gram Negative Bacilli Organism 1 ESCHERICHIA COLI Please refer to [id number] culture ANAEROBIC bottle for sensitivity testing. Anaerobic Culture Bottle Preliminary 06/28/18- 25 ML Anaerobic Btl Gram Stain Gram Negative Bacilli Organism 1 ESCHERICHIA COLI Please refer to [id number] culture ANAEROBIC bottle for sensitivity testing. A: biliary colic w/ cholelithiasis and choledocholithiais, now s/p ERCP w/ sphincterotomy, clinically improved; positive blood cx (final w/ sens pend) P: discussed w/ Dr. Krishnan; no immediate indication for surgery, but cholecystectomy recommended on a nonurgent basis. Will d/w hospitalist team tomorrow, including rec for abx for + BC. Patient would prefer to be d/c'd home and come back when he finishes work on 07/10.
[2018-06-28] MEDS ORDERED: oxyCODONE TAB* 5 MG TAB PO PRN ×3 (20:18→20:19)
--- NOTE | 2018-06-28 21:45 | CONS ---
CC: Federico Pacheco MD * SURGICAL CONSULT NOTE: DATE OF CONSULT: 06/28/18 ATTENDING SURGEON: Tha Krishnan MD (GYPSY Jacobsen, dictating). CHIEF COMPLAINT: Abdominal pain with choledocholithiasis. HISTORY OF PRESENT ILLNESS: This is a 78-year-old hypertensive male, who 3 to 4 days ago was experiencing increasing epigastric abdominal pain. This was associated with chills, but no documented fever. He also had some nausea and vomiting. 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 He was seen initially by his PCP and lab work revealed elevated liver function tests. He was treated initially with prednisone for possible autoimmune hepatitis. His symptoms worsened and he presented to the ED. Workup included an ultrasound showing probable cholelithiasis as well as a dilated common bile duct and what appeared to be choledocholithiasis. This was confirmed by a CT scan. His initial total bilirubin was 7.5, the majority of which was direct. AST was 324, ALT 828, alkaline phosphatase 443. His lipase was less than 10. He had elevated white blood cell count of 15,500. He underwent ERCP with sphincterotomy and extraction of multiple stones and fragments by Dr. Deleon on 06/27/18. He has been receiving IV Zosyn and has a preliminary blood culture that is positive for E. Coli with final ID and sensitivities pending. Today, the patient states that he feels great. He has no abdominal pain nor any nausea or vomiting. He has been tolerating diet well today and has been without fever or chills. PAST MEDICAL HISTORY: Notable for hypertension, arthritis, and kidney stones. He had had a prior laparotomy approximately 30 years ago for perforated bleeding gastric ulcer. It sounds as though he had pyloroplasty and vagotomy. At that time, he has had no recurrence of that problem. He is also status post appendectomy. MEDICATIONS: Current home medications include: 1. Lisinopril/hydrochlorothiazide. 2. Aspirin. 3. Oxycodone 5/325 (typically 3 to 4 per day p.r.n. for arthritis pain, primarily the lower extremities.) 4. He currently is receiving Zosyn. DRUG ALLERGIES: None known. FAMILY HISTORY: As per his admission history and physical. SOCIAL HISTORY: As per his admission history and physical. REVIEW OF SYSTEMS: No additions to the review of systems from the admission history and physical. PHYSICAL EXAM: Height 6 feet, weight 188 pounds. Temperature 98, blood pressure 117/44, pulse 54, respirations 18, room air saturation 99%. General: Well- nourished, well-developed male, in no acute distress. He appears comfortable on the hospital bed. Skin: Warm and dry. No suspicious rashes or lesions noted. HEENT: Pupils equal, round, reactive. EOMs intact. No conjunctival pallor. There is some scleral icterus. Oropharynx: Full upper and lower dentures. No intraoral lesions. Neck: No lymphadenopathy or thyromegaly. Heart: Regular rate and rhythm, slightly bradycardic. No murmur noted. Lungs: Clear to auscultation. No rales or wheezes. Abdomen: Well- healed upper midline incision as well as right lower quadrant incision. No palpable masses or organomegaly. No tenderness to palpation. Negative Martinez sign. No definitive palpable inguinal hernias in the supine position, though he states that he has been told by his PCP that he has an inguinal hernia. Genitalia: Otherwise not examined. Rectal: Not done. Extremities: No edema. DIAGNOSTIC STUDIES/LAB DATA: White blood cell count of 15,500, today down to 9000, hemoglobin 12.9, hematocrit 37. He does have a left shift. Most recent electrolytes, BUN and creatinine are normal. His repeat liver function tests today are down including total bilirubin down to 4.4. Blood cultures are as noted above. Ultrasound and CT as noted above. IMPRESSION: Cholelithiasis with choledocholithiasis, now status post successful endoscopic retrograde cholangiopancreatography with sphincterotomy in the patient with clinical improvement. PLAN: Case was discussed with Dr. Krishnan, who will see him tomorrow. There is no immediate indication for a surgical intervention, though cholecystectomy is recommended. The patient would like to be able to finish working before having surgery (07/10/18). 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 The other question is final results including sensitivities on his blood culture and recommendations in terms of antibiotic therapy. Dr. Krishnan will further address the timing of the surgery tomorrow. GYPSY JACOBSEN [id number]/[facility] #: [id number] LEO
[2018-06-29] MEDS: Piperacillin/Tazobac ADVAN(*) 3.375 GM in NS 0.9% 100 ML* 100 ML IVPB SCH ×2 (01:10→08:14)
[2018-06-29] MEDS: Heparin VIAL(*) 5000 UNITS/ML VIAL (FIVE THOUSAND) SUBCUT SCH (06:22)
[2018-06-29 06:55] LABS: ABS Basophils 0 10^3/ul (0-0.2); ABS Eosinophils 0.2 10^3/ul (0-0.6); ABS Lymphocytes 0.9 10^3/ul (1.0-4.8); ABS Monocytes 0.5 10^3/ul (0-0.8); ABS Neutrophils 5.1 10^3/ul (1.5-7.7); ABS Nucleated RBC 0 10^3/ul; Eosinophil % 2.6 % (0-6); Hematocrit 40 % (42-52); Hemoglobin 13.7 g/dl (14.0-18.0); Lymphocyte % 13.2 % (25-47); Mean Corpuscular HGB Conc 35 g/dl (31-36); Mean Corpuscular Hemoglobin 31 pg (27-31); Mean Corpuscular Volume 90 fL (80-94); Mean Platelet Volume 7.9 um3 (7.4-10.4); Nucleated Red Blood Cells % 0.1; Platelet Count 205 10^3/ul (150-450); Red Blood Count 4.45 10^6/ul (4.00-5.40); Red Cell Distribution Width 14 % (10.5-15); White Blood Count 6.6 10^3/ul (3.5-10.8)
[2018-06-29 07:10] LABS: EGFR Non-African American 70.2 (>60)
--- NOTE | 2018-06-29 10:58 | PN ---
Subjective Date of Service: 06/29/18 Interval History: Pt states he is feeling quite good. He denies any abdominal pain. He has been tolerating his meals. He has been ambulating without difficulty. He would like to go home today. Objective Active Medications: Heparin Sodium (Porcine) (Heparin Vial(*)) 5,000 units SUBCUT Q8HR [facility] Last Admin: 06/29/18 06:22 Dose: Not Given Piperacillin Sod/Tazobactam (Sod 3.375 gm/ Sodium Chloride) 100 mls @ 25 mls/ hr IVPB Q8H [facility] Last Admin: 06/29/18 08:14 Dose: 25 mls/hr Morphine Sulfate (Morphine Vial*) 1 mg IV Q4H PRN PRN Reason: PAIN - MILD Last Admin: 06/27/18 18:08 Dose: 1 mg Ondansetron HCl (Zofran Inj*) 4 mg IV Q4H PRN PRN Reason: NAUSEA/VOMITING Oxycodone HCl (Roxycodone Tab*) 10 mg PO BEDTIME PRN PRN Reason: PAIN Last Admin: 06/28/18 22:15 Dose: 10 mg Oxycodone HCl (Roxycodone Tab*) 5 mg PO Q6HR PRN PRN Reason: PAIN Last Admin: 06/28/18 20:30 Dose: 5 mg Pharmacy Consult (Zosyn Per Pharmacy*) 1 note FOLLOW UP .ZOSYN PER PHARMACY [facility] Vital Signs - 8 hr 06/29/18 06/29/18 06/29/18 04:09 07:29 08:00 Temperature 97.6 F 97.4 F Pulse Rate 51 51 Respiratory 16 16 18 Rate Blood Pressure 134/64 136/70 (mmHg) O2 Sat by Pulse 100 98 98 Oximetry Oxygen Devices in Use Now: None Appearance: Elderly male sitting up in bed, NAD Eyes: - - mild scleral icterus Ears/Nose/Mouth/Throat: Mucous Membranes Moist Respiratory: Symmetrical Chest Expansion and Respiratory Effort, Clear to Auscultation Cardiovascular: NL Sounds; No Murmurs; No JVD, RRR, No Edema Abdominal: NL Sounds; No Tenderness; No Distention Extremities: No Clubbing, Cyanosis Skin: No Nodules or Sclerosis, - - mild jaundice Neurological: Alert and Oriented x 3 Result Diagrams: 06/29/18 06:46 06/29/18 06:46 Microbiology and Other Data: Microbiology 06/27/18 07:28 Aerobic Blood Culture - Preliminary Blood Venous Escherichia Coli Anaerobic Blood Culture - Preliminary Escherichia Coli 06/27/18 07:08 Aerobic Blood Culture - Preliminary Blood Venous Escherichia Coli Anaerobic Blood Culture - Preliminary Escherichia Coli Assess/Plan/Problems-Billing Mr Hirsch is a 78 yo M with h/o HTN who presented to the ER with c/o fever , jaundice and RUQ abd pain and was identified to have a CBD stone and probable cholangitis. - Patient Problems (1) Common bile duct (CBD) obstruction Current Visit: Yes Status: Acute Code(s): K83.1 - OBSTRUCTION OF BILE DUCT SNOMED Code(s): 936162434 Comment: The patient had likely chloangitis on admission with fever, leukocytosis and elevated LFTs/bilirubin. He is s/p ERCP on 06/27/18. The patient is feeling much improved. He will need cholecystectomy though he would like to hold off until after he is done working in a couple weeks. ID consult today given 4 of 4 bottles positive for E coli. He is currently on zosyn but his culture reveals pansensitive E coli. Can likely go home today or tomorrow on oral Abx. (2) HTN (hypertension) Current Visit: Yes Status: Acute Code(s): I10 - ESSENTIAL (PRIMARY) HYPERTENSION SNOMED Code(s): 16895897 Comment: BP is in acceptable range off his home medications. On d/c will have pt continue on lisinopril though hold his HCTZ. (3) DVT prophylaxis Current Visit: Yes Status: Acute Code(s): KEM2136 - SNOMED Code(s): 659402730 Comment: SQ heparin (4) Patient is full code Current Visit: Yes Status: Acute Code(s): Z78.9 - OTHER SPECIFIED HEALTH STATUS SNOMED Code(s): 182201354 Status and Disposition: .
[2018-06-29 11:18] VITALS: BP 141/69
--- NOTE | 2018-06-29 21:32 | CONS ---
CONSULTATION REPORT: DATE OF CONSULT: 06/29/18 REQUESTING PHYSICIAN: Dr. Calle. CONSULTING SERVICE: Infectious Disease. REASON FOR CONSULT: E. coli bacteremia, cholangitis. IMPRESSION: 1. Ascending cholangitis, status post ERCP, removal of common bile duct stones , Escherichia coli in 4/4 bottles of the blood culture. His abdominal pain has resolved. His transaminitis and hyperbilirubinemia are improving. The Escherichia coli in the blood is pansensitive. 2. Cholelithiasis with plans for cholecystectomy eventually. RECOMMENDATION: Amoxicillin 500 mg by mouth 3 times a day for 10 more days to complete a 2-week course total. HISTORY OF PRESENT ILLNESS: This is a 78-year-old man admitted with epigastric pain, which was severe and cramping with low-grade fever. He came to the hospital on 06/27/18, had a temperature of 38.7. He had a bilirubin of 7.5, ALT of 828, white blood cell count of 15. Blood culture bottles came back 4/4 bottles with E. coli. He was started on Zosyn. He had an ERCP for removal of stones. He tolerated that well. His pain has resolved. He has had no fevers or chills. His appetite is improving. He has been on Zosyn without any loose stools or rash. PAST MEDICAL HISTORY: 1. Osteoarthritis. 2. Hypertension. 3. Nephrolithiasis. 4. History of perforated gastric ulcer and laparotomy. 5. Noninvasive spinal surgery. 6. Status post appendectomy. ALLERGIES: No known drug allergies. MEDICATIONS: 1. Zosyn 3.375 g IV every 8 hours. 2. Oxycodone as needed. 3. Zofran. 4. Morphine as needed. 5. Heparin subcutaneous injection. SOCIAL HISTORY: He lives in [place] with his . He is still working at the [employer]. FAMILY HISTORY: No recurrent infections. REVIEW OF SYSTEMS: All negative except as noted above to a 14-point review of systems. PHYSICAL EXAM: Vital Signs: Temperature of 36.5, heart rate 50, respiratory rate 16, blood pressure 140/69, oxygen saturation 99% on room air. In general, he is awake, not in distress. Neurologic: He is oriented x3. Follows all commands. HEENT: There is no thrush. Neck is supple without mass. Heart has regular rate and rhythm without murmurs, rubs, or gallops. Lungs are clear to auscultation bilaterally. Abdomen: Soft, nontender, nondistended. There are bowel sounds present. Skin: There is no rash or splinter hemorrhage. Musculoskeletal: There is no spine tenderness to palpation or joint synovitis. LABORATORY DATA: Creatinine 1, Bilirubin 2.6, ALT 270, alk phos 240. White blood cell count 6, hemoglobin 13.7, platelets 205. Please see impressions and recommendations as outlined above, which I have discussed with Dr. Calle. Thanks for asking me to see Verenice Joycelyn in consultation. [id number]/[facility] #: [id number] [facility]
--- NOTE | 2018-06-30 06:06 | DS ---
CC: Dr. Krishnan; Dr. Pacheco * DISCHARGE SUMMARY: DATE OF ADMISSION: 06/27/18 DATE OF DISCHARGE: 06/29/18 PRIMARY CARE PROVIDER: Dr. Pacheco PRINCIPAL DIAGNOSIS: Cholangitis secondary to choledocholithiasis. SECONDARY DIAGNOSIS: Hypertension. DISCHARGE MEDICATIONS: 1. Amoxicillin 500 mg p.o. t.i.d. x10 days. 2. Lisinopril 20 mg p.o. daily. 3. Aspirin 81 mg p.o. daily. 4. Oxycodone 5 mg p.o. q.6 hours p.r.n. pain. HOSPITAL COURSE: Mr. Hirsch is a 78-year-old male who presented to the emergency room on 06/27/18 with complaints of abdominal pain, nausea, and vomiting. He was ultimately found to have lab abnormalities that included a white blood cell count of 15.5 thousand, bilirubin of 7.5, AST of 324, ALT of 828 and alkaline phosphatase of 443. CT imaging of the abdomen and pelvis revealed choledocholithiasis. The gallbladder appeared mostly contracted. The patient was seen in consultation by Dr. Martinez who performed an ERCP. The common bile duct stones were crushed and extracted. The patient also had an endoscopic sphincterotomy. Post ERCP the patient has been abdominal pain free. He has been tolerating a regular diet. He was seen in consultation by General Surgery who recommended cholecystectomy, however, the patient wished to wait until he was done working for the season. The patient was ultimately discharged home to continue on amoxicillin 500 mg p.o. t.i.d. Of note, the patient did have positive blood cultures, 4/4 bottles positive for E. coli from admission. Because of this, the patient was seen in consultation by Infectious Disease who recommended the change from Zosyn to amoxicillin. The patient has been instructed to follow up with Dr. Krishnan in the next 1 to 2 weeks and with his primary care provider in the next 4 to 7 days. The patient's blood work has improved. His white blood cell count is down to 6.6. His bilirubin is 2.6. His AST is 37. His ALT is 269 and his alkaline phosphatase is 240. At this point, it is felt that the patient is stable for discharge home. FOLLOWUP CONCERNS: The patient is being discharge home today, 06/29/18. ACTIVITY LEVEL: As tolerated. DIET: Low fat. CONDITION ON DISCHARGE: Stable. The patient has been instructed to return to the emergency room for any fevers, chills, or recurrent abdominal pain or any other concerning issues. TIME SPENT: 35 minutes were spent discharging this patient. [id number]/[facility] #: [id number] LEO
== END 2018-06-29 15:00 | disposition home or self-care (01) | DRG 446 ==
LOC: ED 06:34 → MED 09:55
PROVIDERS: ADMIT Internal Medicine; ATTEND Hospitalist
PROC: 0FC98ZZ Extirpation of Matter from Common Bile Duct, Via Natural or Artificial Opening Endoscopic (ICD-10-PCS; principal; 2018-06-27 15:00)
DX: K80.30 Calculus of bile duct with cholangitis, unspecified, without obstruction (principal); I10 Essential (primary) hypertension; M19.90 Unspecified osteoarthritis, unspecified site; R00.0 Tachycardia, unspecified; K57.10 Diverticulosis of small intestine without perforation or abscess without bleeding; G89.29 Other chronic pain; M54.5 Low back pain; K75.4 Autoimmune hepatitis; E78.00 Pure hypercholesterolemia, unspecified; Z79.82 Long term (current) use of aspirin; Z90.89 Acquired absence of other organs; Z82.49 Family history of ischemic heart disease and other diseases of the circulatory system; Z87.891 Personal history of nicotine dependence; Z87.442 Personal history of urinary calculi; Z80.9 Family history of malignant neoplasm, unspecified
CPT/HCPCS: 36415; 71045; 74177; 74328; 76705; 80053; 80074; 80329; 81003; 82140; 82248; 83605; 83690; 84100; 84484; 85025; 85610; 85730; 86140; 87040; 87077; 87186; 87205; 93005; 99284; A9270-GY; C1769; G0480; J1100; J1644; J2250; J2270; J2405; J2543; J2704; J3010; J3370; Q9967

== ENCOUNTER 2020-05-31 07:21 | Observation (INO) ==
[2020-05-31] MEDS ORDERED: NS 0.9% 1000 ml BAG 1,000 ML IV ONE (07:53)
[2020-05-31] MEDS ORDERED: Morphine 4 MG/ML VIAL (1 ml) IV ONE ×2 (08:12→09:22)
[2020-05-31] MEDS ORDERED: Ondansetron 4 mg VIAL 2 MG/ML 2 ml VIAL IV ONE (08:12)
[2020-05-31 08:18] LABS: ABS Eosinophils 0.1 10^3/ul (0-0.6); ABS Lymphocytes 0.6 10^3/ul (1.0-4.8); ABS Monocytes 0.5 10^3/ul (0-0.8); Eosinophil % 0.6 %; Hematocrit 48 % (42-52); Hemoglobin 16.6 g/dL (14.0-18.0); Lymphocyte % 5.8 %; Mean Corpuscular HGB Conc 35 g/dL (31-36); Mean Corpuscular Hemoglobin 31 pg (27-31); Mean Corpuscular Volume 90 fL (80-94); Mean Platelet Volume 8.2 fL (7.4-10.4); Platelet Count 248 10^3/uL (150-450); Red Blood Count 5.33 10^6 /uL (4.18-5.48); Red Cell Distribution Width 13 % (10-15); White Blood Count 10.3 10^3/uL (3.5-10.8)
[2020-05-31 08:35] LABS: Albumin 4.4 g/dL (3.2-5.2); Albumin/Globulin Ratio 1.5 (1-3); BUN/Creatinine Ratio 21.6 (8-20); C Reactive Protein 9.91 mg/L (<8.01); Calcium 10.3 mg/dL (8.6-10.3); EGFR African American 59.8 (>60); EGFR Non-African American 49.4 (>60); Indirect Bilirubin 1.1 mg/dL (0.3-1.0); Magnesium 2.1 mg/dL (1.9-2.7); Total Bilirubin 3.4 mg/dL (0.2-1.0); Total Protein 7.4 g/dL (6.4-8.9)
[2020-05-31] MEDS ORDERED: LORazepam 2 mg VIAL 1 ml IV PUSH ONE (09:22)
[2020-05-31] MEDS ORDERED: Lorazepam PYXIS KEY PRN (09:22)
[2020-05-31] MEDS ORDERED: Iodixanol (CONTRAST) 320 MG/ML 100 ML SDV IV ONE (09:50)
[2020-05-31 10:17] LABS: Urine Appearance Clear; Urine Bilirubin Negative (Negative); Urine Blood Negative (Negative); Urine Color Amber; Urine Glucose Negative (Negative); Urine Ketones Trace (Negative); Urine Nitrite Negative (Negative); Urine Protein Negative (Negative); Urine Specific Gravity 1.014 (1.010-1.030); Urine Urobilinogen Positive (Negative)
[2020-05-31] MEDS ORDERED: Ondansetron 4 mg VIAL 2 MG/ML 2 ml VIAL IV PRN (11:33)
[2020-05-31] MEDS ORDERED: Enoxaparin 40 MG/0.4 ML SYR SUBCUT SCH ×2 (12:00→15:00)
[2020-05-31] MEDS ORDERED: Piperacillin/Tazobac ADVAN 3.375 GM in NS 0.9% 100 ml BAG 100 ML IVPB ONE (12:04)
[2020-05-31 12:17] LABS: INR 1.09 (0.82-1.09)
[2020-05-31] MEDS: NS 0.9% 1000 ml BAG 1,000 ML IV SCH (12:55)
[2020-05-31] MEDS ORDERED: Zosyn per Pharmacy NOTE FOLLOW UP SCH (13:00)
[2020-05-31] MEDS: ZOSYN 3.375 GM Q8H per EXTENDED INFUSION IV SCH (17:08)
[2020-05-31] MEDS ORDERED: Senna TAB 8.6 mg TAB PO SCH (21:00)
[2020-06-01] MEDS: ZOSYN 3.375 GM Q8H per EXTENDED INFUSION IV SCH ×4 (00:57→19:27)
[2020-06-01] MEDS: NS 0.9% 1000 ml BAG 1,000 ML IV SCH ×2 (00:57→14:46)
[2020-06-01 05:44] LABS: ABS Eosinophils 0.1 10^3/ul (0-0.6); ABS Lymphocytes 0.8 10^3/ul (1.0-4.8); ABS Monocytes 0.7 10^3/ul (0-0.8); ABS Neutrophils 9.6 10^3/ul (1.5-7.7); Eosinophil % 1.2 %; Hematocrit 37 % (42-52); Lymphocyte % 7.1 %; Mean Corpuscular HGB Conc 35 g/dL (31-36); Mean Corpuscular Hemoglobin 32 pg (27-31); Mean Corpuscular Volume 91 fL (80-94); Mean Platelet Volume 8.2 fL (7.4-10.4); Platelet Count 190 10^3/uL (150-450); Red Blood Count 4.08 10^6 /uL (4.18-5.48); Red Cell Distribution Width 13 % (10-15); White Blood Count 11.3 10^3/uL (3.5-10.8)
[2020-06-01 06:00] LABS: BUN/Creatinine Ratio 21.5 (8-20); Calcium 8.8 mg/dL (8.6-10.3); EGFR African American 44.1 (>60); EGFR Non-African American 36.4 (>60); Potassium 4.1 mmol/L (3.5-5.0)
[2020-06-01] MEDS ORDERED: Propofol 10 mg/ml 100 ML BTL 100 ML ONE (09:01)
[2020-06-01] MEDS ORDERED: Lidocaine 2% PF 5 ML VIAL ONE (09:04)
[2020-06-01] MEDS ORDERED: Dexmedetomidine 200 mcg/2 ml 2 ml VIAL (200 mcg) ONE (09:04)
[2020-06-01] MEDS ORDERED: Ketamine HCL 50 mg/ml 10 ml VIAL (500 MG) ONE (09:05)
[2020-06-01] MEDS ORDERED: Naloxone 0.4 mg VIAL 0.4 mg/ml 1 ml VIAL IV PRN (11:05)
[2020-06-01] MEDS ORDERED: Ondansetron 4 mg VIAL 2 MG/ML 2 ml VIAL IV PRN (11:05)
[2020-06-01] MEDS ORDERED: HYDROmorphone 1 MG/1 ML SYRINGE IV PRN (11:05)
[2020-06-01] MEDS ORDERED: Heparin 5000 UNITS/ML 1 mL VIAL SUBCUT ONE (16:18)
[2020-06-02] MEDS: NS 0.9% 1000 ml BAG 1,000 ML IV SCH ×2 (01:00→11:45)
[2020-06-02] MEDS: ZOSYN 3.375 GM Q8H per EXTENDED INFUSION IV SCH ×2 (03:57→12:12)
[2020-06-02 05:36] LABS: ABS Eosinophils 0.2 10^3/ul (0-0.6); ABS Lymphocytes 0.7 10^3/ul (1.0-4.8); ABS Monocytes 0.4 10^3/ul (0-0.8); Eosinophil % 3.2 %; Hematocrit 35 % (42-52); Hemoglobin 12.2 g/dL (14.0-18.0); Lymphocyte % 11.2 %; Mean Corpuscular HGB Conc 35 g/dL (31-36); Mean Corpuscular Hemoglobin 32 pg (27-31); Mean Corpuscular Volume 90 fL (80-94); Mean Platelet Volume 7.9 fL (7.4-10.4); Platelet Count 171 10^3/uL (150-450); Red Blood Count 3.87 10^6 /uL (4.18-5.48); Red Cell Distribution Width 13 % (10-15); White Blood Count 6.3 10^3/uL (3.5-10.8)
[2020-06-02 05:55] LABS: Albumin 3.1 g/dL (3.2-5.2); Albumin/Globulin Ratio 1.5 (1-3); BUN/Creatinine Ratio 20.7 (8-20); Calcium 8.5 mg/dL (8.6-10.3); EGFR African American 73.7 (>60); EGFR Non-African American 60.9 (>60); Globulin 2.1 g/dL (2-4); Potassium 3.8 mmol/L (3.5-5.0); Total Bilirubin 1.6 mg/dL (0.2-1.0); Total Protein 5.2 g/dL (6.4-8.9)
[2020-06-02] MEDS: Heparin 5000 UNITS/ML 1 mL VIAL SUBCUT SCH ×2 (09:31→15:19)
[2020-06-02 14:33] VITALS: BP 115/64
== END 2020-06-02 15:40 | disposition home or self-care (01) ==
LOC: SSU 07:21 → ED 07:21
PROVIDERS: ADMIT Internal Medicine; ATTEND Internal Medicine